=== PATIENT | male | born 1935 | race Caucasian/White ===

== ENCOUNTER → 2016-07-10 | Outpatient (CLI) | payer MEDICARE, OTHER ==
[~2016-07-10] MED LIST: Iopamidol 755 MG/ML 500 ML Multipack Bottle IVPUSH STA
--- NOTE | 2016-07-10 14:56 | CT ---
EXAMINATION: CT chest with and without contrast HISTORY: Cough COMPARISON: None TECHNIQUE: Axial CT images obtained through the chest before and following the administration of 60 mL of Isovue-370 in the left arm. Coronal and sagittal reconstructions obtained. There was extravasa tion of approximately 60 mL of contrast into the arm. This area was evaluated and the patient was gi kathrin hot and cold packs for treatment. FINDINGS: There is atelectasis within the right lung base. There are scattered areas of scarring wit hin the lungs bilaterally. There is a small 6 mm nodular area within the right upper lobe noted on i mage [id number] of series [id number] were a few other small nodular areas identified within the left upper lobe as well. These measure under 6 mm. Emphysematous changes are noted. The heart is normal in size without a pericardial effusion. Coronary artery calcifications are noted. The central airways are clear. No npathologically enlarged mediastinal and hilar lymph nodes are noted. The central airways are clear. There is a cyst within the left kidney. There is a healing subacute mid sternal fracture. IMPRESSION: 1. No acute cardiopulmonary findings. 2. Subacute healing mid sternal fracture. 3. Scarring with several ill-defined tiny pulmonary nodules bilaterally measuring up to 6 mm. Follow -up in 6-12 months. 4. Coronary artery calcifications.
== END ==
LOC: MW.CT 10:23
PROVIDERS: ATTEND Nurse Practitioner Family
DX: R05 Cough (principal); S22.20XD Unspecified fracture of sternum, subsequent encounter for fracture with routine healing; I25.10 Atherosclerotic heart disease of native coronary artery without angina pectoris
CPT/HCPCS: 71270; 71270-26